=== PATIENT | male | born 1980 | race Caucasian/White ===

== ENCOUNTER 2016-08-03 18:22 | Emergency (ER) | payer OTHER ==
[~2016-08-03] VITALS: Ht 170.2 cm; Wt 153.0 kg
[~2016-08-03 18:22] MED LIST: ATIVAN1 MG PO; BRINTELLIX20 MG PO; BUSPAR15 MG PO; CLONIDINE HCL0.1 MG PO; CYMBALTA60 MG PO; HYDROXYZINE HCL25 MG PO; LAMICTAL150 MG PO; LEXAPRO20 MG PO; LISINOPRIL2.5 MG PO; LISINOPRIL40 MG PO; LITHIUM CARBON300 MG PO; LORAZEPAM1 MG PO; PRAZOSIN HCL1 MG PO; RANITIDINE HCL150 MG PO; REXULTI0.5 MG PO; SEROQUEL XR400 MG PO; SEROQUEL400 MG PO; TRAZODONE HCL150 MG PO; VIIBRYD20 MG PO; ZESTRIL,PRINIVI10 MG PO
[2016-08-03 19:57] LABS: ADD MEDTOX COMMENT Y; AMPHETAMINE NEGATIVE (500 ng/mL); BARBITURATES NEGATIVE (200 ng/mL); BENZODIAZEPINES PRESUMPTIVE POSITIVE (150 ng/mL); COCAINE NEGATIVE (150 ng/mL); INTERNAL CONTROLS VALID? YES; METHADONE NEGATIVE (200 ng/mL); METHAMPHETAMINE NEGATIVE (500 ng/mL); OPIATES (MORPHINE) NEGATIVE (100 ng/mL); OXYCODONE NEGATIVE (100 ng/mL); PHENCYCLIDINE NEGATIVE (25 ng/mL); PROPOXYPHENE NEGATIVE (300 ng/mL); THC CANNABINOIDS NEGATIVE (50 ng/mL); TRICYCLIC ANTIDEPRESSANTS NEGATIVE (300 ng/mL)
[2016-08-03 20:53] LABS: BENZODIAZEPINES, URINE SCREEN POSITIVE (200 ng/mL)
[2016-08-03] MEDS ORDERED: XANAX0.25 MG PO (21:30)
[2016-08-04] MEDS ORDERED: SEROQUEL400 MG PO (01:08)
[2016-08-04 01:58] VITALS: BP 115/68
== END 2016-08-04 02:00 | disposition home or self-care (01) ==
LOC: EME 18:22
PROC: 3E0234Z Introduction of Serum, Toxoid and Vaccine into Muscle, Percutaneous Approach (ICD-10-PCS; principal; 2016-08-04)
DX: F31.32 Bipolar disorder, current episode depressed, moderate (principal); S50.812A Abrasion of left forearm, initial encounter; X78.9XXA Intentional self-harm by unspecified sharp object, initial encounter; R41.83 Borderline intellectual functioning; Z23 Encounter for immunization; I10 Essential (primary) hypertension
CPT/HCPCS: 84999; 90839; 99281; 99284; G0480

== ENCOUNTER 2016-10-10 14:27 | Emergency (ER) | payer OTHER ==
[~2016-10-10] VITALS: Ht 170.2 cm; Wt 145.4 kg
[~2016-10-10 14:27] MED LIST changes: +XANAX0.25 MG PO
[2016-10-10 15:04] LABS: EOSINOPHIL (%) 0.9 % (0-5); EOSINOPHIL COUNT 0.1 K/uL (0-0.3); HEMATOCRIT 46.7 % (38.0-50.0); IMMATURE GRANULOCYTE (%) 0.4 % (0.0-0.7); INSTRUMENT ABS NEUTROPHIL CT 7.2 K/uL; LYMPHOCYTE COUNT 1.2 K/uL (1.0-2.8); MCH 27.5 PG (29.0-34.0); MCHC 32.8 G/DL (30.0-36.0); MCV 83.8 FL (86-99); MEAN PLAT.VOLUME 8.7 uM^3 (9.0-12.4); MONOCYTE (%) 5.2 % (3-12); MONOCYTE COUNT 0.5 K/uL (0-0.8); NEUTROPHIL (%) 79.8 % (45-76); NEUTROPHIL COUNT 7.2 K/uL (1.8-6.4); PLATELET COUNT 287 K/uL (156-360); RBC DIS.WIDTH-SD 42.4 % (39-53); RED BLOOD COUNT 5.57 M/uL (4.00-5.50)
[2016-10-10 15:19] LABS: CHLORIDE 106 mEq/L (99-109); POTASSIUM 3.8 mEq/L (3.7-5.4); SODIUM 139 mEq/L (136-147)
[2016-10-10 15:21] LABS: GLUCOSE 104 mg/dL (70-99)
[2016-10-10 15:22] LABS: ANION GAP 12 MEQ/L (2-14)
[2016-10-10 15:24] LABS: GFR ESTIMATE (CALCULATED) > 59 mL/min/; SERUM ETHYL ALCOHOL < 10 mg/dL
[2016-10-10 15:25] LABS: UREA NITROGEN (BUN) 10 mg/dL (9-23)
[2016-10-10 15:50] LABS: ADD MIUA? YES; BILIRUBIN NEGATIVE; BLOOD NEGATIVE; COLOR AMBER ((YELLOW)); GLUCOSE (STRIP) NEGATIVE; KETONES 5; LEUKOCYTES NEGATIVE; NITRITE NEGATIVE; PROTEIN (STRIP) 30; SPECIFIC GRAVITY 1.026 (1.000-1.030)
[2016-10-10 16:01] LABS: AMPHETAMINE NEGATIVE (500 ng/mL); BENZODIAZEPINES PRESUMPTIVE POSITIVE (150 ng/mL); COCAINE NEGATIVE (150 ng/mL); METHAMPHETAMINE NEGATIVE (500 ng/mL); OPIATES (MORPHINE) NEGATIVE (100 ng/mL); PHENCYCLIDINE NEGATIVE (25 ng/mL); THC CANNABINOIDS NEGATIVE (50 ng/mL)
[2016-10-10 16:02] LABS: ADD MEDTOX COMMENT Y; BARBITURATES NEGATIVE (200 ng/mL); INTERNAL CONTROLS VALID? YES; METHADONE NEGATIVE (200 ng/mL); OXYCODONE NEGATIVE (100 ng/mL); PROPOXYPHENE NEGATIVE (300 ng/mL); TRICYCLIC ANTIDEPRESSANTS PRESUMPTIVE POSITIVE (300 ng/mL)
[2016-10-10 16:09] LABS: BACTERIA RARE /HPF; EPITHELIAL CELLS 2+ /HPF; MUCUS 4+ /LPF; RED BLOOD CELLS 0-5 /HPF (0-5); WHITE BLOOD CELLS 0-5 /HPF (0-5)
[2016-10-10 16:40] LABS: BENZODIAZEPINES, URINE SCREEN POSITIVE (200 ng/mL)
[2016-10-10] MEDS ORDERED: LAMICTAL25 MG PO (17:07)
[2016-10-10 17:28] VITALS: BP 148/85
== END 2016-10-10 17:54 | disposition home or self-care (01) ==
LOC: EME 14:27
PROVIDERS: Emergency Medicine
DX: F41.9 Anxiety disorder, unspecified (principal); F31.32 Bipolar disorder, current episode depressed, moderate; F25.9 Schizoaffective disorder, unspecified; I10 Essential (primary) hypertension; Z91.5 Personal history of self-harm
CPT/HCPCS: 80048; 81003; 84999; 85025; 90837; 99281; 99284; G0480